=== PATIENT | female | born 1985 | race Hispanic/Latino ===

== ENCOUNTER 2024-06-10 10:52 | Emergency (ER) | payer SELFPAY ==
--- NOTE | ~2024-06-10 | US_ITS ---
EXAMINATION: US OB <=14 wk fetus w TV DATE: 06/10/2024 15:48 INDICATION: Vaginal bleeding. First trimester . TECHNIQUE: Real-time pelvic ultrasound utilizing both a transvaginal and transabdominal probe was pe rformed. The interpreting radiologist was not present for the study. COMPARISON: None. FINDINGS: The uterus measures 10.2 x 4.8 x 5.7 cm. There are couple small anechoic nabothian cysts at the cervi x the largest measuring 5 mm. The endometrial complex measures 2.6 cm in thickness. There is heteroge neous soft tissue density with some interspersed fluid at the fundus. There is a dumb figueroa-shaped ane choic fluid collection measuring 5.3 cm in length with 2 teardrop shaped collections measuring 2.0 x 1.1 cm at the fundus and 2.2 x 1.2 cm the lower uterine segment with the thin communicating neck of f luid at the mid uterus.There is a 4 x 2 mm echogenic soft tissue density within the fundal portion of the fluid collection potentially representing a yolk sac or pole but significantly smaller miki n would be expected given the size of the presumptive gestational sac. The right ovary measures 2.8 x 1.6 x 2.0 cm. The left ovary measures 2.2 x 1.2 x 1.9 cm. There is a 1 .3 similar anechoic cyst/follicle in the right ovary. Vascular flow identified at both ovaries on col or Doppler. There is no free fluid in the pelvis. IMPRESSION: 1. Thickened endometrial complex containing a large dumb figueroa-shaped anechoic fluid collection extend ing between the fundus and the lower uterine segment. On cine imaging there is a 4 x 2 mm echogenic s oft tissue density within the fundal portion of the collection potentially representing a yolk sac an d/or pole. The size of the potential yolk sac and pole is significantly smaller than woul d be expected for a gestational sac of this size which raises concern for failed . Recommend follow-up with serial beta-hCG levels and short interval repeat follow-up ultrasound as clinically i ndicated. Reviewed, dictated and finalized at location B. RNMENT TEACHER IMPRESSION: 1. Thickened endometrial complex containing a large dumb figueroa-shaped anechoic f luid collection extending between the fundus and the lower uterine segment. On cine imaging there is a 4 x 2 mm echogenic soft tissue density within the germaine l portion of the collection potentially representing a yolk sac and/or po le. The size of the potential yolk sac and pole is significantly smaller than would be expected for a gestational sac of this size which raises concern for failed . Recommend follow-up with serial beta-hCG levels and short interval repeat follow-up ultrasound as clinically indicated.
[2024-06-10 10:56] VITALS: BP 132/80; PULSE 91; RESP 20; TEMP 36.4; O2SAT 100
--- OUTSIDE RECORDS SUMMARY | 2024-06-10 12:07 | XMS_ITS | Patient Health Summary ---
Author Organization [facility] Address [address] [place] [address] Care Team Providers Care Printed Forms Proofreader Name Role Phone Unavailable Primary Care Provider Unavailabl e Note from [facility],non-owned Affiliates and Associated Physician Practices is amultiple site organization consisting of ambulatory clinics and hospital sitesin [place], [place], [place] and [place]. This disclosure is being madepursuant to the Care Everywhere program and may not contain all information available regarding this patient. Last updated 18.[facility] Allergies No known active allergies Medications * Be aware that medications may not be up to date on this document. Alwaysverify current medications with the patient. * Cetirizine HCl (ZYRTEC PO) * methylPREDNISolone (MEDROL DOSEPAK) 4 MG tablet(Started 11/28/2018) Take by mouth as directed * triamcinolone acetonide (KENALOG) 0.1 % cream(Started 11/28/2018) Apply to affected area 2 times daily Social History Tobacco Use Types Packs/Day Years Used Date Smoking Tobacco: Never Smokeless Tobacco: Never Sex and Gender Information Value Date Recorded Sex Assigned at Not on file Gender Identity Not on file Sexual Orientation Not on file Last Filed Vital Signs Vital Sign Reading Time Taken Comments Blood Pressure 120/70 11/28/2018 11:58 AM CDT Pulse 84 11/28/2018 11:58 AM CDT Temperature 37.6 ??C (99.7 ??F) 11/28/2018 11:58 AM C DT Respiratory Rate 18 11/28/2018 11:58 AM CDT Oxygen Saturation - - Inhaled Oxygen Concentration - - Weight 60.8 kg (134 lb) 11/28/2018 11:58 AM CDT Height 147.3 cm (4' 10 ) 11/28/2018 11:58 AM CDT Body Mass Index 28.01 11/28/2018 11:58 AM CDT
--- OUTSIDE RECORDS SUMMARY | 2024-06-10 12:07 | XMS_ITS | Continuity of Care Document ---
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 Name Role Phone Maritza Delgadillo MD Unavailable Unavailable Allergies, Adverse Reactions, Alerts Substance Reaction Status Criticality No Known Allergies Active No Inform ation Procedures Procedure Date OFFICE/OUTPATIENT VISIT, EST URINE TEST, BY VISUAL COLOR CO MPARISON METHODS Alcohol and/or drug screening OFFICE OUTPT EST 25 MIN Immun admin-adult or WO counseling-[place] [address] INFLUENZA VACCINE IIV3 ADMIN SARSCOV2 VACC 1 DOSE SARSCOV2 VAC 30MCG TRSSUC IM Urinalysis, Auto, w/o Scope HEMOGLOBIN; GLYCOSYLATED (A1C) BX/CURETT OF CERVIX W/SCOPE URINE TEST, BY VISUAL COLOR CO MPARISON METHODS PERIODIC COMPREHENSIVE PREVENTIVE MED RE E/M; ESTABLISHED PATIENT; 18-39 URINE TEST, BY VISUAL COLOR CO MPARISON METHODS INJ MEDROXYPROGESTERONE ACETATE 1 MG September INJ MEDROXYPROGESTERONE ACETATE 1 MG Feb OFFICE/OUTPATIENT VISIT, EST URINE TEST, BY VISUAL COLOR CO MPARISON METHODS CONIZATION OF CERVIX URINE TEST, BY VISUAL COLOR CO MPARISON METHODS OFFICE OUTPT EST 25 MIN BX/CURETT OF CERVIX W/SCOPE URINE TEST, BY VISUAL COLOR CO MPARISON METHODS INJ MEDROXYPROGESTERONE ACETATE 1 MG Oct PERIODIC COMPREHENSIVE PREVENTIVE MED RE E/M; ESTABLISHED PATIENT; 18-39 URINE TEST, BY VISUAL COLOR CO MPARISON METHODS Voided Encounter DETERMINATION OF REFRACTIVE STATE OPH MEDICAL XM&EVAL COMPRE NEW PT 1+ VST Immunization Admin COVID19 Pfizer Pre-Di luted Dose 1 SARS-CoV-2 (COVID19) VACCINE PFIZER PRED ILUTED OFFICE OUTPT EST 25 MIN Coronavirus AG IA (Rapid Test) URINE TEST, BY VISUAL COLOR CO MPARISON METHODS HEMOGLOBIN; GLYCOSYLATED (A1C) Voided Encounter INJ MEDROXYPROGESTERONE ACETATE 1 MG Jun OFFICE/OUTPATIENT VISIT, EST URINE TEST, BY VISUAL COLOR CO MPARISON METHODS INJ MEDROXYPROGESTERONE ACETATE 1 MG Mar OFFICE/OUTPATIENT VISIT, EST URINE TEST, BY VISUAL COLOR CO MPARISON METHODS INJ MEDROXYPROGESTERONE ACETATE 1 MG Dec OFFICE/OUTPATIENT VISIT, EST Alcohol and/or drug screening URINE TEST, BY VISUAL COLOR CO MPARISON METHODS OFFICE/OUTPATIENT VISIT, EST INJ MEDROXYPROGESTERONE ACETATE 1 MG Aug URINE TEST, BY VISUAL COLOR CO MPARISON METHODS OFFICE/OUTPATIENT VISIT, EST INJ MEDROXYPROGESTERONE ACETATE 1 MG May URINE TEST, BY VISUAL COLOR CO MPARISON METHODS OFFICE/OUTPATIENT VISIT, EST INJ MEDROXYPROGESTERONE ACETATE 1 MG Feb URINE TEST, BY VISUAL COLOR CO MPARISON METHODS INJ MEDROXYPROGESTERONE ACETATE 1 MG Nov OFFICE/OUTPATIENT VISIT, EST URINE TEST, BY VISUAL COLOR CO MPARISON METHODS OFFICE/OUTPATIENT VISIT, EST INJ MEDROXYPROGESTERONE ACETATE 1 MG September URINE TEST, BY VISUAL COLOR CO MPARISON METHODS INJ MEDROXYPROGESTERONE ACETATE 1 MG Jun OFFICE/OUTPATIENT VISIT, EST OFFICE/OUTPATIENT VISIT, NEW URINE TEST, BY VISUAL COLOR CO MPARISON METHODS HEPATITIS A VACCINE, ADULT DOSAGE, FOR I NTRAMUSCULAR USE OFFICE/OUTPATIENT VISIT, NEW Alcohol and/or drug screening 8 Urinalysis, Auto, w/o Scope URINE TEST, BY VISUAL COLOR CO MPARISON METHODS Advance Directives Directive Yes / No Effective Date File Name No Information Encounters Encounter Description Practice Location Reason(s) For Visit Diagnoses Date Provider Providers Copied on Encounter [facility], [address], [place], [place], [address] , tel: [phone] [facility] No Information 5 Elie Salas. [address], [place], [place], [address], . tel:[phone] [facility], [address], [place], [place], [address] , [place] tel:[phone] [facility] No Information 5 Elie Salas. [address], [place], [place], [address], . tel:[phone] OFFICE/OUTPATI ENT VISIT, EST [facility], [address], [place], [place], [address] , tel: [phone] [facility] check up (chief complaint) Body mass index (BMI) 27.0-27.9, adultEncounter for test, result positiveOverwe ightEncounter for test, result unknown 5 Elie Salas. [address], [place], [place], [address], . tel:[phone] OFFICE OUTPT EST 25 MIN [facility], [address], [place], [place], [address] , [place] tel:[phone] [facility] wellness check (chief complaint) Body mass index (BMI) 27.0-27.9, adultEncounter for adult health check-upCervic al high risk HPV DNA test positiveEncoun ter for screening for Ca of cervixEncounte r for immunizationEn counter for oth screening for malignant neoplasm of breastEncntr for plastic panel installer exam (general) (routine) w abnormal findings 4 Gerber Kwong. [address], [place], [place], [address], [place]. tel:[phone] [facility], [address], [place], [place], [address] , [place] tel:[phone] [facility] Colposcopy (chief complaint) Body mass index (BMI) 27.0-27.9, adultCarcinoma in situ of endocervixOver weightModerate cervical dysplasia 4 Elei Salas. [address], [place], [place], [address], [place]. tel:[phone] PERIODIC COMPREHENSIVE PREVENTIVE MED REE/M; ESTABLISHED PATIENT; 18-39 [facility], [address], [place], [place], [address] , [place] tel: [phone] [facility] Pap (chief complaint) Body mass index (BMI) 27.0-27.9, adultCarcinoma in situ of endocervixCerv ical high risk HPV DNA test positiveOverwe ightEncounter for screening for Ca of cervixEncounte r for surveillance of injectable contraceptiveW ell woman exam with abnormal findingEncount er for test, result unknown 4 DePass Lianne. [address], [place], [place], [address], [place]. tel:[phone] OFFICE/OUTPATI ENT VISIT, EST [facility], [address], [place], [place], [address] , [place] tel: [phone] [facility] Leep f/u (chief complaint) Body mass index (BMI) 26.0-26.9, adultEncounter for surveillance of injectable contraceptiveO verweightCarci noma in situ of endocervixEnco unter for test, result unknown 3 [facility]. [address], [place], [place], [address], [place]. tel:[phone] [facility], [address], [place], [place], [address] , [place] tel: [phone] [facility] Leep (chief complaint) CICI 2OverweightBod y mass index (BMI) 26.0-26.9, adultEncounter for test, result unknown 3 [facility]. [address], [place], [place], [address], [place]. tel:[phone] OFFICE OUTPT EST 25 MIN [facility], [address], [place], [place], [address] , [place] tel: [phone] [facility] LEEP consult (chief complaint) CICI 2 3 [facility]. [address], [place], [place], [address], [place]. tel:[phone] [facility], [address], [place], [place], [address] , [place] tel: [phone] [facility] colpo (chief complaint) Cervical high risk HPV DNA test positiveBody mass index (BMI) 25.0-25.9, adultEncounter for test, result unknown 3 [facility]. [address], [place], [place], [address], [place]. tel:[phone] PERIODIC COMPREHENSIVE PREVENTIVE MED REE/M; ESTABLISHED PATIENT; 18-39 [facility], [address], [place], [place], [address] , tel: [phone] [facility] Pap (chief complaint)d epo (chief complaint)b manohar button concerns (chief complaint) Body mass index (BMI) 25.0-25.9, adultEncounter for gynecological examination (general) (routine) without abnormal findingsEncoun ter for surveillance of injectable contraceptiveE ncounter for screening for Ca of cervixDisorder of the skin and subcutaneous tissue, unspecifiedEnc ounter for test, result unknown 3 Camila Abdalla. [address], [place], [place], [address], . tel:[phone] [facility], [address], [place], [place], [address] , tel: [phone] [facility] Depo Injection (chief complaint) No Information Jan-0 2 Nurse Registered. [address], [place], [place], [address], . tel:[phone] [facility], [address], [place], [place], [address] , tel: [phone] [facility] Eyelid twitching (chief complaint)E yelid twitching (chief complaint) Myopia, bilateralRegul ar astigmatism, bilateralOther vitreous opacities, bilateralFacia l myokymia Jan-0 2 No Information OFFICE OUTPT EST 25 MIN [facility], [address], [place], [place], [address] , tel: [phone] [facility] Medical exam (chief complaint)P t have headache, Pt left eye hurt and feel hot. (chief complaint)P t be feeling like that since a 1 week. (chief complaint) Body mass index (BMI) 25.0-25.9, adultNauseaEnc ounter for immunizationEn counter for adult health check-upUnspec ified disorder of eye and adnexaEncounte r for surveillance of injectable contraceptiveH eadache, unspecifiedEnc ounter for test, result unknown 0 2 Gerber Kwong. [address], [place], [place], [address], [place]. tel:[phone] [facility], [address], [place], [place], [address] , [place] tel: [phone] [facility] No Information 2 [facility]. [address], [place], [place], [address], [place]. tel:[phone] OFFICE/OUTPATI ENT VISIT, EST [facility], [address], [place], [place], [address] , [place] tel: [phone] [facility] depo (chief complaint) Body mass index (BMI) 27.0-27.9, adultEncounter for screening for malignant neoplasm of cervixEncounte r for surveillance of injectable contraceptiveO verweightEncou nter for test, result unknown 2 [facility]. [address], [place], [address], [place]. tel:[phone] OFFICE/OUTPATI ENT VISIT, EST [facility], [address], [place], [place], [address] , [place] tel: [phone] [facility] depo (chief complaint) Encounter for surveillance of injectable contraceptiveE ncounter for test, result unknown [facility]. [address], [place], [place], [address], [place]. tel:[phone] OFFICE/OUTPATI ENT VISIT, EST [facility], [address], [place], [place], [address] , [place] tel: [phone] [facility] depo (chief complaint) Body mass index (BMI) 26.0-26.9, adultEncounter for surveillance of injectable contraceptiveE ncounter for screening for other disorderEncoun ter for test, result unknown [facility]. [address], [place], [place], [address], . tel:[phone] OFFICE/OUTPATI ENT VISIT, EST [facility], [address], [place], [place], [address] , [place] tel:[phone] [facility] depo (chief complaint) Body mass index (BMI) 26.0-26.9, adultEncounter for surveillance of injectable contraceptiveO verweightEncou nter for test, result unknown 1 Elie Salas. [address], [place], [address], [place]. tel:[phone] OFFICE/OUTPATI ENT VISIT, EST [facility], [address], [place], [place], [address] , [place] tel: [phone] [facility] DEPO (chief complaint) Body mass index (BMI) 25.0-25.9, adultEncounter for surveillance of injectable contraceptiveO verweightEncou nter for test, result unknown 1 Elie Salas. [address], [place], [place], [address], [place]. tel:[phone] OFFICE/OUTPATI ENT VISIT, EST [facility], [address], [place], [place], [address] , [place] tel:[phone] [facility] depo (chief complaint) Body mass index (BMI) 25.0-25.9, adultEncounter for surveillance of injectable contraceptiveO verweightEncou nter for test, result unknown 0 Elie Salas. [address], [place], [place], [address], [place]. tel:[phone] Referring Provider: Maritza Delgadillo, [address], [place], [address] . tel:[phone] OFFICE/OUTPATI ENT VISIT, EST [facility], [address], [place], [place], [address] , [place] tel:[phone] [facility] depo (chief complaint) Body mass index (BMI) 25.0-25.9, adultEncounter for surveillance of injectable contraceptiveE ncounter for initial prescription of injectable contracep 0 Camila Abdalla. [address], [place], [place], [address], [place]. tel:[phone] OFFICE/OUTPATI ENT VISIT, EST [facility], [address], [place], [place], [address] , [place] tel:[phone] [facility] DEPO (chief complaint) Body mass index (BMI) 25.0-25.9, adultEncounter for initial prescription of injectable contracep 0 Gerber Kwong. [address], [place], [place], [address], . tel:[phone] Referring Provider: Elenita murguia, [address], [place], [address] . tel:[phone] OFFICE/OUTPATI ENT VISIT, EST [facility], [address], [place], [place], [address] , [place] tel:[phone] [facility] depo (chief complaint) Body mass index (BMI) 26.0-26.9, adultEncounter for initial prescription of injectable contracepOverw eightEncounter for screening for malignant neoplasm of cervix 0 Elie Maritza. [address], [place], [place], [address], . tel:[phone] OFFICE/OUTPATI ENT VISIT, NEW [facility], [address], [place], [place], [address] , [place] tel:[phone] [facility] pap (chief complaint) Encounter for surveillance of other contraceptives Encounter for screening for malignant neoplasm of cervixEncounte r for gynecological examination (general) (routine) without abnormal findingsCandid iasis, unspecifiedRas h and other nonspecific skin eruptionEncoun ter for screening, unspecified Mar-2 3-201 8 Gerber Kwong. [address], [place], [place], [address], [place]. tel:[phone] OFFICE/OUTPATI ENT VISIT, NEW [facility], [address], [place], [place], [address] , [phone] Urgent Care Immunizatio n/Hep A (chief complaint) Encounter for immunizationEn counter for screening for other disorderEncoun ter for screening, unspecified 8 Cricket Lundberg. [address], [place], [place], [address], [place]. tel:[phone] Referring Provider: Toño Harley, [address], [place], [address] . tel:[phone] Family History Family Member Type Diagnosis Age At Onset No Information Immunizations Vaccine Date Status Comments FLULAVAL(VFC)/Fluzone(Privat e)/FLUARIX(317) administered Note: Pt tolerated i njection well ; Source: New Immunization Record 12+ Pfizer administered Note: Pt tolera yara injection well ; Source: New Immunization Record COVID-19 Pfizer 12+ Johnson Cap administered Note: Pt tolerate injection well, Pt in lobby for 15mn. ; Source: New Immunization Record Vaqta/Havrix (HepA adult) administered So urce: New Immunization Record Payers Payer name Insurance type Covered republican ID Authoriza tion(s) No Information Social History Type Description Quantity Date Captured Comments Alcohol Use Details Unknown Caffeine Use Details Unknown Tobacco Use Status No Information Smoking Status No Information Sex Female Sexual Orientation Straight or heterosexual May Gender Identity Female Chief Complaint And Reason For Visit No Information Reason For Referral Reason For Referral No Information Plan Of Treatment Date Type Action Status Referral Ordered: [facility] -Mammography Screening and Diagnostic (related to Encounter for ot screening for malignant neoplasm of breast) ordered Referral Referred To: [facility] [facility] [address], [place], [phone] Ordered: Referrals: Mammography Screening and Diagnostic. [facility] ordered Referral Ordered: Pathology (tissue specimen) ordered Future Order: Lab Order hCG, Tot al, Quantitative - Serum ([id number]), Scheduled for: Ordered Future Order: Radiology Order OB US < 14 Weeks, Single Fetus ([id number]), Ordered on: Ordered Nutrition Recommendation Nutrition therap y completed Nutrition Recommendation Nutrition therap y completed Nutrition Recommendation Nutrition therap y completed Nutrition Recommendation Nutrition therap y completed Nutrition Recommendation Nutrition therap y completed Nutrition Recommendation Nutrition therap y completed Nutrition Recommendation Nutrition therap y completed Nutrition Recommendation Nutrition therap y completed Nutrition Recommendation Nutrition therap y completed Nutrition Recommendation Nutrition therap y completed Nutrition Recommendation Nutrition therap y completed Nutrition Recommendation Nutrition therap y completed Nutrition Recommendation Nutrition therap y completed Nutrition Recommendation Nutrition therap y completed Nutrition Recommendation Nutrition therap y completed Nutrition Recommendation Nutrition therap y completed History Of Present Illness Encounter Date Complaint History Of Prese nt Illness check up 38yo for urgent appt Depo mid 2023No MOC sinceLMP 03/27PT at home positive -- seen in clinic in [facility] obtained which did not show IUP or ectopic, 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 Had bleeding at home, not heavy, but with small clots, mild cramping UPT positive in clinic todayPap 11/02/22- [facility] HR HPV positive Colpo w/ CICI 2 on ECC, no CICI at ectocervical bxLEEP 02/04 w/ CICI 3, negative margins 6 month Pap 09/30/23 - AGC/ HR HPV positivePap 04/06/2024 - NIL/ HR HPV neg wellness check 38 year old here for routine checkno medicationsno chronic health issuesmood is goodhere with Mom todaynow 38, due for mx, OK with referralpap history---Pap 11/02/22- [facility] HR HPV positive Colpo w/ CICI 2 on ECC, no CICI at ectocervical bxLEEP 02/04 w/ CICI 3, negative margins 6 month Pap 09/30/23 - AGC/ HR HPV positive repeat due [id number] 03/27/24OK for flu and COVID vax Colposcopy 37yo for colpo P ap 6/23/23- [facility] HR HPV positive Colpo w/ CICI 2 on ECC, no CICI at ectocervical bxLEEP 02/04 w/ CICI 3, negative margins 6 month Pap 09/30/23 - AGC/ HR HPV positive DMPA 09/29 Has completed childbearing Pap here for pap and depoPT negative todayUsually amenorrheic when on depo but no depo since 02/25/23SA w/ one male partner, 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 Declines STD screeningLMP 08/15, prior menses to that in bPa2017/NIL/HR HPV negPap 11/02/22- [facility] HR HPV positive Colpo w/ CICI 2 on ECC, no CICI at ectocervical bxLEEP 02/04 w/ CICI 3, negative margins Has completed childbearing Leep f/u 37yo for LEEP f/ u Pap 11/02/22- [facility] HR HPV positive Colpo w/ CICI 2 on ECC, no CICI at ectocervical bxLEEP 02/04 w/ CICI 3, negative margins No pain, fever, bleeding or foul smelling discharge; notes some darkish brown secretions DMPA 11/02 - would like another shot today ; PT negative Has completed childbearing Leep 37yo with abnorm al Pap Pap 11/02/- [facility] HPV positive Colpo w/ CICI 2 on ECC, no CICI at ectocervical bxHas completed childbearing LEEP consult 37yo with abnorm al Pap Pap //- [facility] HPV positive Colpo w/ CICI 2 on ECC, no CICI at ectocervical bxHas completed childbearing colpo 37yo here for co lpo Pap // - [facility] HR HPV positive belly button concerns Pt reports of having some concerns with her belly button. She noticed some fluid coming out her belly button, which has smell to it. She noticed liquid and smell from her belly button this week also. Pt tried to clean the area with Q-tip. Pap 37 yo her e for WWE and depoLast depo summer 2022LMP- 1 week agoPT negative todayUsually amenorrheic when on depoSA w/ one male partner Pap 2017/NIL/HR HPV neg, due depo Depo Injection Administered to pt in her left deltoid. Pt tolerated injection well, no reactions noted at time of injection. RN reminded pt to come in for her next injection at 04/05-04/19. Pt given a copy of the Depo Calender with return information highlighted. Pt v/u. Eyelid twitching The 36 Year old female presents for evaluation of Eyelid twitching in the left eye. It started about 2 week(s) ago. The onset was sudden. Vision is not affected. The symptom is intermittent. Pt is not currently using anything to treat the issue. Pt notes increased stress levels the past couple of months Pt have headache, Pt left eye hurt and feel hot. Pt be feeling like t hat since a 1 week. Medical exam 3 week history o f nauseasmell of meat makes pt feel nauseatedotherwise no nauseapt has felt the same with in pasthome PT negative this AMno vomitingformerly on Depo, last Depo was 8 months agohaving regular menses, LMP 12/18/21wants to continue with Depopap pt also has one week of pain in left eyeno drainage, no vision changeslast optometry exam one year ago, no change in rx for lensesfeels like eyeball is bigger than normal/ this sensation is intermittentno current medsmood is gooddue for COVID booster depo 35 yo her e for depoLast depo 03/23LateHad menses last monthPT negative todayUsually amenorrheic SA w/ one male partner Pap 2017/NIL/HR HPV neg depo depo 35 yo 3 here for Depolast depo: 12/15period since last depo: amenorrheicsexual activity: +SA male partnerpap: neg/neg 2018declines STD testing today depo 35 yo her e for Depolast depo: 09/08period since last depo: amenorrheicsexual activity: +SA male partnerpap: neg/neg 2018declines STD testing today depo 34[address] depo [address] depo 06/06AmenorrheaBreast tenderness 3 weeks ago +SA w/ one male partner, feels safePap: 2018 - NIL/HPV negative DEPO 34yo for depo [address] depo 03/11Amenorrhea+SA w/ one male partner, feels safePap: 2018 - NIL/HPV negative depo 34[address] for depo [address] depo 12/08Amenorrhea+SA w/ one male partner, feels safeDeclines flu vaccinePap: 2018 - NIL/HPV negative depo Here for Depoon timesome intermittent spotting past 2 weeksdenies HAdenies abdominal painwants to continue methodpap UTD--neg/neg 2017no other concerns DEPO Here for Depoon timesome intermittent spotting past 2 weeksdenies HAdenies abdominal painwants to continue methodpap UTD--neg/neg 2017no other concerns depo 33yo for contraceptionDesires controlShe and considering BTL and vasectomy Interested in DMPAUsed implant prior to of last child ~8 years ago, nothing since LMP 2 weeks agoPap 07/2017 - NIL/neg pap new pthere for p apLMP- 07/25/[id number], all vaginal birthsFP - nothing since of last child 7 years ago, does not want controlno hx of abnormal papsalso worried about some skin issuesgets hives off and on regularlynot related to any particular foods or contacts that she has been able to determinehas had issue for yearscurrently red skin on throatsomewhat itchyno feversalso has skin changes under breasts and in left leg foldhas never tried anything on itwas told it was dry skin, but getting worseno medsno surgical hx Immunization/Hep A 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 Doing well, no complaints. Functional Status Date Functional Assessmen t No Information Instructions Date Instruction Additional Infor alhaji Prescribed activity/ exercise education Related to Body mass index [BMI] 27.0-27.9, adult Prescribed activity/ exercise education Related to Body mass index [BMI] 27.0-27.9, adult Prescribed activity/ exercise education Related to Body mass index [BMI] 27.0-27.9, adult Prescribed activity/ exercise education Related to Body mass index [BMI] 27.0-27.9, adult Prescribed activity/ exercise education Related to Body mass index [BMI] 26.0-26.9, adult Prescribed activity/ exercise education Related to Body mass index [BMI] 25.0-25.9, adult Prescribed activity/ exercise education Related to Body mass index [BMI] 25.0-25.9, adult Impression/Plan Related to Other vitreous opacities, bilateral Impression/Plan Related to Myopi a, bilateral Impression/Plan Related to Regul ar astigmatism, bilateral Impression/Plan Related to Facia l myokymia Prescribed activity/ exercise education Related to Body mass index [BMI] 25.0-25.9, adult Prescribed activity/ exercise education Related to Body mass index [BMI] 27.0-27.9, adult Prescribed activity/ exercise education Related to Body mass index [BMI] 26.0-26.9, adult Prescribed activity/ exercise education Related to Body mass index [BMI] 26.0-26.9, adult Prescribed activity/ exercise education Related to Body mass index [BMI] 25.0-25.9, adult Prescribed activity/ exercise education Related to Body mass index [BMI] 25.0-25.9, adult Weight monitoring Related to Bod y mass index (BMI) 25.0-25.9, adult Prescribed activity/ exercise education Related to Body mass index (BMI) 25.0-25.9, adult Prescribed activity/ exercise education Related to Body mass index (BMI) 26.0-26.9, adult Assessments Type Assessment Date No Information Patient Care Teams Name Effective Dates (start - stop) Status Members No Information
--- OUTSIDE RECORDS SUMMARY | 2024-06-10 12:07 | XMS_ITS | Clinical Summary ---
Author Organization [facility] [employer] Address [address] [place] [address] Care Team Providers Care Lamp Tester And Inspector Name Role Phone Unavailable Primary Care Provider Unavailabl e Source Comments [facility],non-owned Affiliates and Associated Physician Practices is amultiple site organization consisting of ambulatory clinics and hospital sitesin [place], [place], [place] and [place]. This disclosure is being madepursuant to the Care Everywhere program and may not contain all information available regarding this patient. Last updated 18.[facility] [employer] Allergies No known active allergies Medications * Be aware that medications may not be up to date on this document. Alwaysverify current medications with the patient. Medication Sig Dispensed Refills Start Date End Date Status Cetirizine HCl (ZYRTEC PO) Active methylPREDNISolone (MEDROL DOSEPAK) 4 MG tablet Take by mouth as directed 1 Each 11/28/2018 Active triamcinolone acetonide (KENALOG) 0.1 % cream Apply to affected area 2 times daily 80 g 11/28/2018 Active Social History Tobacco Use Types Packs/Day Years [...] Mass Index 28.01 11/28/2018 11:58 AM CDT Plan of Treatment Health Maintenance Due Date Last Done Comments LIPID TESTING 1983 MAMMOGRAM 1983 PAP SMEAR 1983 HIV SCREENING 10/28/1998 HEPATITIS C SCREENING 10/24/2001 DTAP/TDAP/TD VACCINES (1 - Tdap) 10/28/2002 HEPATITIS B VACCINE (1 of 3 - 19+ 3-dose series) 10/28/2002 COVID-19 VACCINE ( - 2023-2 5 season) 2024 INFLUENZA VACCINE (#1) 2024 DEPRESSION SCREENING 05/13/2024 ZOSTER VACCINE (1 of 2) 10/28/2033 HIB VACCINE Aged Out No longer eligi ble based on patient's age to complete this topic HPV VACCINE Aged Out No longer eligi ble based on patient's age to complete this topic MENINGOCOCCAL (Group B) VACCINE Aged Out No longer eligible based on patient's age to complete this topic MENINGOCOCCAL VACCINE Aged Out No basia harpreet eligible based on patient's age to complete this topic PNEUMOCOCCAL VACCINE Aged Out No long er eligible based on patient's age to complete this topic
--- OUTSIDE RECORDS SUMMARY | 2024-06-10 12:07 | XMS_ITS | Referral Summary ---
Author Organization [facility] [employer] Address [address] [place] [address] Care Team Providers Care Web Offset Press Feeder Name Role Phone Unavailable Primary Care Provider Unavailabl e Source Comments [facility],non-owned Affiliates and Associated Physician Practices is amultiple site organization consisting of ambulatory clinics and hospital sitesin [place] and [place]. This disclosure is being madepursuant to the Care Everywhere program and may not contain all information available regarding this patient. Last updated 18.[facility] [employer] Allergies No known active allergies Medications * [...] 11/28/2018 11:58 AM CDT Plan of Treatment Not on file
--- NOTE | 2024-06-10 13:28 | ED.FEMALEGU ---
HPI - Female Genitourinary General Chief complaint: Vaginal Bleeding <Destiny Hernández PA-C - Last Filed: 06/10/24 13:36> Stated complaint: miscarriage <Destiny Hernández PA-C - Last Filed: 06/10/24 13:36> Time Seen by Provider: 06/10/24 14:53 <Destiny Hernández PA-C - Last Filed: 06/10/24 13:36> Focused HPI: 38 y/o F presents to the ED for vaginal bleeding in . LMP mid March. She believes she is 6-8 weeks . Patient had a positive test on May 23, 2024. She had an ultrasound performed last week which showed no activity. She had her beta hcg drawn Saturday which was reportedly 1500. States last night the patient began having vaginal bleeding and passing clots. She has been changing a pad every 30 minutes since. States she went to [place] emergency department last night but left after waiting to be seen for 3 hours. She is reporting lower abdominal cramping. Her OBGYN is Dr. Maritza Delgadillo with [facility] in [place]. GENERAL: Well-appearing, well-nourished, and in no acute distress. HEAD: Normocephalic, atraumatic. CHEST: Clear to auscultation. ?No respiratory distress. HEART: Regular rate and rhythm.? NEURO: ?Alert and oriented x3. Patient screened in triage and initial orders placed.? ?Additional care and disposition to be based upon?diagnostic testing and treatment. <Destiny Hernández PA-C - Last Filed: 06/10/24 13:36> History of Present Illness HPI Narrative: I agree with the above HPI <Austin Glass MD - Last Filed: 06/10/24 19:26> Related Data Allergies/Adverse reactions: Allergies Allergy/AdvReac Type Severity Reaction Status Date / Time No Known Allergies Allergy Verified 06/10/24 11:00 <Destiny Hernández PA-C - Last Filed: 06/10/24 13:36> Review of Systems Review of Systems: All systems reviewed & are unremarkable except as noted in HPI and below <Austin Glass MD - Last Filed: 06/10/24 19:26> Exam Narrative: APPEARANCE: Well appearing, no pain, no distress, well-nourished. HEAD: normocephalic, atraumatic. EYES: PERRLA/EOMI, conjunctivae clear. NOSE: Normal no drainage EARS:TMS clear with good light reflex. THROAT: Pharynx clear, no exudate. NECK: Supple. No adenopathy, no masses. RESPIRATORY: Airway patent, respirations nonlabored. Clear to auscultation bilaterally, no rales, rhonchi, wheezing. CARDIOVASCULAR: Regular rate and rhythm without murmurs rubs or gallops. ABDOMINAL: Soft, nontender, nondistended, normal bowel sounds Pelvic exam: Mild bleeding from the cervix with no evidence of hemorrhage or rapid refilling of the vaginal vault MUSCULOSKELETAL: Moves all extremities. Strength/ROM intact, No edema, No calf tenderness. NEURO: Alert. Cranial nerves II through XII intact. Good gait. Good coordination SKIN: Warm, dry. Normal Color <Austin Glass MD - Last Filed: 06/10/24 19:26> Course Vital Signs Vital signs: Vital Signs Temperature 97.6 F 06/10/24 10:56 Pulse Rate 91 06/10/24 10:56 Respiratory Rate 20 06/10/24 10:56 Blood Pressure 132/80 06/10/24 10:56 Pulse Oximetry 100 06/10/24 10:56 Oxygen Delivery Room Air 06/10/24 10:56 Temperature 97.9 F 06/10/24 14:41 Pulse Rate 89 06/10/24 17:32 Respiratory Rate 18 06/10/24 17:32 Blood Pressure 109/63 06/10/24 17:32 Pulse Oximetry 100 06/10/24 17:32 Oxygen Delivery Room Air 06/10/24 14:41 <Destiny Hernández PA-C - Last Filed: 06/10/24 13:36> Vital Signs Temperature 97.6 F 06/10/24 10:56 Pulse Rate 91 06/10/24 10:56 Respiratory Rate 20 06/10/24 10:56 Blood Pressure 132/80 06/10/24 10:56 Pulse Oximetry 100 06/10/24 10:56 Oxygen Delivery Room Air 06/10/24 10:56 Temperature 97.9 F 06/10/24 14:41 Pulse Rate 89 06/10/24 17:32 Respiratory Rate 18 06/10/24 17:32 Blood Pressure 109/63 06/10/24 17:32 Pulse Oximetry 100 06/10/24 17:32 Oxygen Delivery Room Air 06/10/24 14:41 <Austin Glass MD - Last Filed: 06/10/24 19:26> MDM - Female Genitourinary MDM Narrative Medical decision making narrative: 38-year-old female present to the emergency department for evaluation for vaginal bleeding. Patient is afebrile with no leukocytosis stable hemoglobin 11.2. Patient's blood type is O positive. No acute abnormalities on the patient's CMP. Patient's beta hCG was 549.14. On pelvic exam patient did have vaginal bleeding but no evidence of hemorrhage. Bleeding was coming from the cervix which was nonfriable. Ultrasound showed thickened endometrial complex containing a large dumb figueroa-shaped anechoic fluid collection extending between the fundus and the lower uterine segment. On cine imaging there is a 4 x 2 mm echogenic soft tissue density within the fundal portion of the collection potentially representing a yolk sac and/or pole. The size of the potential yolk sac and pole is significantly smaller than would be expected for a gestational sac of this size which raises concern for failed . Recommend follow-up with serial beta-hCG levels and short interval repeat follow-up ultrasound as clinically indicated. <Austin Glass MD - Last Filed: 06/10/24 19:26> Differential Diagnosis Differential diagnosis: Likely urinary tract infection, bacterial vaginosis, ovarian cyst and ruptured ovarian cyst <Austin Glass MD - Last Filed: 06/10/24 19:26> Lab Data Attestation: I reviewed the patient's lab results. <Austin Glass MD - Last Filed: 06/10/24 19:26> Result diagrams: 06/10/24 13:36 06/10/24 13:36 <Destiny Hernández PA-C - Last Filed: 06/10/24 13:36> Labs: Lab Results 06/10/24 06/10/24 06/10/24 Range/Units 13:36 13:37 15:59 WBC 9.3 (4.5-10.0) K/mm3 RBC 4.17 L (4.2-5.4) M/mm3 Hgb 11.2 L (12.0-15.0) g/dL Hct 35.5 L (37.0-47.0) % MCV 85.1 (80-100) fl MCH 26.9 (26-34) pg MCHC 31.5 L (32-36) g/dl RDW 13.7 (11.5-14.5) % Plt Count 301 (150-375) k/mm3 MPV 9.2 (7.4-10.4) fl Immature Gran % (Auto) 0.2 (0-0.5) % Neut % (Auto) 55.4 (45.5-73.1) % Lymph % (Auto) 34.8 (18.3-44.2) % Sherman % (Auto) 7.3 (2.6-8.5) % Eos % (Auto) 1.8 (0-4.4) % Baso % (Auto) 0.5 (0.2-1.2) % Lymph # (Auto) 3.25 H (0.9-3.2) K/mm3 Sherman # (Auto) 0.7 H (0.1-0.6) K/mm3 Eos # (Auto) 0.2 (0-0.3) K/mm3 Baso # (Auto) 0.1 (0.0-0.1) K/mm3 Abs Immat Gran (auto) 0.02 (0.00-0.031) K/mm3 Absolute Neuts (auto) 5.2 (1.3-6.7) K/mm3 Absolute Nucleated RBC 0.000 (0.0-0.012) K/mm3 Nucleated RBC % 0.0 (0.0-0.2) % PT 13.2 (11.1-14.7) Seconds INR 1.0 APTT 29.1 (22.3-36.8) Seconds Sodium 138 (137-145) mmol/L Potassium 3.9 (3.4-5.0) mmol/L Chloride 104 (98-107) mmol/L Carbon Dioxide 24 (22-30) mmol/L Anion Gap 10 (4-12) mmol/L BUN 6 L (7-17) mg/dL Creatinine 0.48 L (0.7-1.0) mg/dL Estim Creat Clear Calc Not Reportable Estimated GFR > 60 (59 - ) Glucose 98 (65-110) mg/dL Calcium 8.7 (8.4-10.2) mg/dL Total Bilirubin 0.4 (0.2-1.3) mg/dL AST 23 (14-36) U/L ALT 30 (6-35) U/L Alkaline Phosphatase 73 (38-126) U/L Total Protein 7.0 (6.3-8.2) g/dL Albumin 4.0 (3.5-5.1) g/dL Beta HCG, Quant 549.14 mIU/ML Urine Color Yellow (Yellow) Urine Appearance Clear (Clear) Urine pH 5.5 (5.0-9.0) Ur Specific [place] 1.006 (1.001-1.035) Urine Protein Negative (Negative) mg/dL Urine Glucose (UA) Negative (Negative) mg/dL Urine Ketones Negative (Negative) mg/dL Ur Blood (Man) 3+ H (Negative) Urine Nitrate Negative (Negative) Urine Bilirubin Negative (Negative) Urine Urobilinogen 0.2 (<2.0) mg/dL Add Ur Microanalysis Reviewed Leukocyte Esterase Rfl Negative (Negative) AGUSTÍN/UL Urine RBC 6-10 H (0-2) /hpf Urine WBC 0-5 (0-3) /hpf Ur Squamous Epith Cells Occasional (Few) /hpf Urine Bacteria None seen /hpf Urine Casts 0-2 Blood Type O Positive Antibody Screen Negative Doses of RhIg Required 0 <Destiny Hernández PA-C - Last Filed: 06/10/24 13:36> Lab Results 06/10/24 06/10/24 06/10/24 Range/Units 13:36 13:37 15:59 WBC 9.3 (4.5-10.0) K/mm3 RBC 4.17 L (4.2-5.4) M/mm3 Hgb 11.2 L (12.0-15.0) g/dL Hct 35.5 L (37.0-47.0) % MCV 85.1 (80-100) fl MCH 26.9 (26-34) pg MCHC 31.5 L (32-36) g/dl RDW 13.7 (11.5-14.5) % Plt Count 301 (150-375) k/mm3 MPV 9.2 (7.4-10.4) fl Immature Gran % (Auto) 0.2 (0-0.5) % Neut % (Auto) 55.4 (45.5-73.1) % Lymph % (Auto) 34.8 (18.3-44.2) % Sherman % (Auto) 7.3 (2.6-8.5) % Eos % (Auto) 1.8 (0-4.4) % Baso % (Auto) 0.5 (0.2-1.2) % Lymph # (Auto) 3.25 H (0.9-3.2) K/mm3 Sherman # (Auto) 0.7 H (0.1-0.6) K/mm3 Eos # (Auto) 0.2 (0-0.3) K/mm3 Baso # (Auto) 0.1 (0.0-0.1) K/mm3 Abs Immat Gran (auto) 0.02 (0.00-0.031) K/mm3 Absolute Neuts (auto) 5.2 (1.3-6.7) K/mm3 Absolute Nucleated RBC 0.000 (0.0-0.012) K/mm3 Nucleated RBC % 0.0 (0.0-0.2) % PT 13.2 (11.1-14.7) Seconds INR 1.0 APTT 29.1 (22.3-36.8) Seconds Sodium 138 (137-145) mmol/L Potassium 3.9 (3.4-5.0) mmol/L Chloride 104 (98-107) mmol/L Carbon Dioxide 24 (22-30) mmol/L Anion Gap 10 (4-12) mmol/L BUN 6 L (7-17) mg/dL Creatinine 0.48 L (0.7-1.0) mg/dL Estim Creat Clear Calc Not Reportable Estimated GFR > 60 (59 - ) Glucose 98 (65-110) mg/dL Calcium 8.7 (8.4-10.2) mg/dL Total Bilirubin 0.4 (0.2-1.3) mg/dL AST 23 (14-36) U/L ALT 30 (6-35) U/L Alkaline Phosphatase 73 (38-126) U/L Total Protein 7.0 (6.3-8.2) g/dL Albumin 4.0 (3.5-5.1) g/dL Beta HCG, Quant 549.14 mIU/ML Urine Color Yellow (Yellow) Urine Appearance Clear (Clear) Urine pH 5.5 (5.0-9.0) Ur Specific [place] 1.006 (1.001-1.035) Urine Protein Negative (Negative) mg/dL Urine Glucose (UA) Negative (Negative) mg/dL Urine Ketones Negative (Negative) mg/dL Ur Blood (Man) 3+ H (Negative) Urine Nitrate Negative (Negative) Urine Bilirubin Negative (Negative) Urine Urobilinogen 0.2 (<2.0) mg/dL Add Ur Microanalysis Reviewed Leukocyte Esterase Rfl Negative (Negative) AGUSTÍN/UL Urine RBC 6-10 H (0-2) /hpf Urine WBC 0-5 (0-3) /hpf Ur Squamous Epith Cells Occasional (Few) /hpf Urine Bacteria None seen /hpf Urine Casts 0-2 Blood Type O Positive Antibody Screen Negative Doses of RhIg Required 0 <Austin Glass MD - Last Filed: 06/10/24 19:26> Imaging Data Radiologist's impression: Impressions Obstetrics Ultrasound 06/10/24 15:49 IMPRESSION: 1. Thickened endometrial complex containing a large dumb figueroa-shaped anechoic fluid collection extending between the fundus and the lower uterine segment. On cine imaging there is a 4 x 2 mm echogenic soft tissue density within the fundal portion of the collection potentially representing a yolk sac and/or pole. The size of the potential yolk sac and pole is significantly smaller than would be expected for a gestational sac of this size which raises concern for failed . Recommend follow-up with serial beta-hCG levels and short interval repeat follow-up ultrasound as clinically indicated. <Austin Glass MD - Last Filed: 06/10/24 19:26> Discharge Plan Discharge Clinical Impression: Vaginal bleeding <Destiny Hernández PA-C - Last Filed: 06/10/24 13:36> Patient Disposition: Home, Self-Care <Destiny Hernández PA-C - Last Filed: 06/10/24 13:36> Condition: Stable <Destiny Hernández PA-C - Last Filed: 06/10/24 13:36> Instructions: Antibiotic Form, Threatened Miscarriage (ED) <Destiny Hernández PA-C - Last Filed: 06/10/24 13:36> Additional Instructions: Drink plenty of fluids. Tylenol for pain control. Have close follow-up with your OB Gyne in the next 1-2 days for repeat ultrasound and repeat beta hCG. <Destiny Hernández PA-C - Last Filed: 06/10/24 13:36> Patient Language: Czech <Destiny Hernández PA-C - Last Filed: 06/10/24 13:36> Follow-up/Referrals: UNKNOWN,DOCTOR [Primary Care Provider] - <Destiny Hernández PA-C - Last Filed: 06/10/24 13:36>
[2024-06-10 13:43] LABS: Basophils Absolute Auto 0.1 K/mm3 (0.0-0.1); Basophils Percent Auto 0.5 % (0.2-1.2); Eosinophils Absolute Auto 0.2 K/mm3 (0-0.3); Eosinophils Percent Auto 1.8 % (0-4.4); Hematocrit 35.5 % (37.0-47.0); Hemoglobin 11.2 g/dL (12.0-15.0); Immature Granulocyte Absolute 0.02 K/mm3 (0.00-0.031); Immature Granulocyte Percent A 0.2 % (0-0.5); Lymphocytes Absolute Auto 3.25 K/mm3 (0.9-3.2); Lymphocytes Percent Auto 34.8 % (18.3-44.2); Mean Corpuscular HGB Conc 31.5 g/dl (32-36); Mean Corpuscular Hemoglobin 26.9 pg (26-34); Mean Corpuscular Volume 85.1 fl (80-100); Mean Platelet Volume 9.2 fl (7.4-10.4); Monocytes Absolute Auto 0.7 K/mm3 (0.1-0.6); Monocytes Percent Auto 7.3 % (2.6-8.5); Neutrophils Absolute Auto 5.2 K/mm3 (1.3-6.7); Neutrophils Percent Auto 55.4 % (45.5-73.1); Platelet Count Result 301 k/mm3 (150-375); Red Blood Count 4.17 M/mm3 (4.2-5.4); Red Cell Distribution Width 13.7 % (11.5-14.5); White Blood Count 9.3 K/mm3 (4.5-10.0)
[2024-06-10 13:53] LABS: Alanine Aminotransferase 30 U/L (6-35); Alkaline Phosphatase 73 U/L (38-126); Anion Gap 10 mmol/L (4-12); Aspartate Amino Transferase 23 U/L (14-36); Bilirubin,Total 0.4 mg/dL (0.2-1.3); Blood Urea Nitrogen 6 mg/dL (7-17); Calcium 8.7 mg/dL (8.4-10.2); Carbon Dioxide 24 mmol/L (22-30); Chloride 104 mmol/L (98-107); Estimated Glomerular Filt Rate > 60; Glucose 98 mg/dL (65-110); Potassium 3.9 mmol/L (3.4-5.0); Sodium 138 mmol/L (137-145)
[2024-06-10 13:58] LABS: Partial Thromboplastin Time 29.1 Seconds (22.3-36.8); Prothrombin Time 13.2 Seconds (11.1-14.7)
[2024-06-10 14:20] LABS: Beta HCG Quantitative 549.14 mIU/ML
[2024-06-10 14:41] VITALS: BP 112/77; PULSE 80; RESP 18; TEMP 36.6; O2SAT 100
[2024-06-10] MEDS: SODIUM CHLORIDE 0.9% IV 1,000 ML 999 ML IV CONT (16:14)
[2024-06-10 16:36] LABS: Add Urine Microscopic? YES; Appearance Urine Clear (Clear); Bacteria Urine None Seen /hpf; Bilirubin Urine Negative (Negative); Blood Urine 3+ (Negative); Color Urine Yellow (Yellow); Glucose Urine UA Negative (Negative); Ketones Urine Negative (Negative); Leukocyte Esterase Ur Negative LEU/UL (Negative); Need Manual Microscopic Reviewed; Nitrate Urine Negative (Negative); Non Pathogenic Casts 0-2; Protein Urine Negative (Negative); Specific Grav Ur 1.006 (1.001-1.035); Squamous Epithelial Cell Urine Occasional /hpf (Few); Urobilinogen Urine 0.2 mg/dL (<2.0); WBC Urine 0-5 /hpf (0-3); pH Urine 5.5 (5.0-9.0)
--- OUTSIDE RECORDS SUMMARY | 2024-06-10 16:43 | XMS_ITS | Continuity of Care Document ---
Author Organization [employer] Address [address] [place] [address] Phone Care Team Providers Care Steel Chipper Name Role Phone Maritza Delgadillo MD Unavailable Unavailable Allergies, Adverse Reactions, Alerts Substance Reaction Status Criticality No Known Allergies Active No Inform ation Procedures Procedure Date OFFICE/OUTPATIENT VISIT, EST URINE TEST, BY VISUAL COLOR CO MPARISON METHODS Alcohol and/or drug screening OFFICE OUTPT EST 25 MIN Immun admin-adult or WO counseling-each add vaccine/toxoid aft 56476 INFLUENZA VACCINE IIV3 ADMIN SARSCOV2 VACC 1 [...] Encounter [facility], [address], [place], [place], [address] , tel: [phone] [facility] No Information 5 Elie Salas. [address], [place], [place], [address], . tel:[phone] [facility], [address], [place], [place], [address] , [place] tel:[phone] [facility] No Information 5 Elie Salas. [address], [place], [place], [address], . tel:[phone] OFFICE/OUTPATI ENT VISIT, EST [facility], [address], [place], [place], [address] , tel: [phone] [facility] check up (chief complaint) Body mass index (BMI) 27.0-27.9, adultEncounter for test, result positiveOverwe ightEncounter for test, result unknown 5 Elie Salas. [address], [place], [place], [address], . tel:[phone] OFFICE OUTPT EST 25 MIN [facility], [address], [place], [place], [address] , [place] tel:[phone] [facility] wellness check (chief complaint) Body mass index (BMI) 27.0-27.9, adultEncounter for adult health check-upCervic al high risk HPV DNA test positiveEncoun ter for screening for Ca of cervixEncounte r for immunizationEn counter for oth screening for malignant neoplasm of breastEncntr for student affairs dean exam (general) (routine) w abnormal findings 4 Gerber Kwong. [address], [place], [place], [address], [place]. tel:[phone] [facility], [address], [place], [place], [address] , [place] tel:[phone] [facility] Colposcopy (chief complaint) Body mass index (BMI) 27.0-27.9, adultCarcinoma in situ of endocervixOver weightModerate cervical dysplasia 4 Elie Salas. [address], [place], [place], [address], [place]. 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 [address], [place], [place], [address], [place]. tel:[phone] OFFICE/OUTPATI ENT VISIT, EST [facility], [address], [place], [place], [address] , [place] tel: [phone] [facility] Leep f/u (chief complaint) Body mass index (BMI) 26.0-26.9, adultEncounter for surveillance of injectable contraceptiveO verweightCarci noma in situ of endocervixEnco unter for test, result unknown 3 [facility]. [address], [place], [place], [address], [place]. tel:[phone] [facility], [address], [place], [place], [address] , [place] tel: [phone] [facility] Leep (chief complaint) CICI 2OverweightBod y mass index (BMI) 26.0-26.9, adultEncounter for test, result unknown 3 [facility]. [address], [place], [place], [address], [place]. tel:[phone] OFFICE OUTPT EST 25 MIN [facility], [address], [place], [place], [address] , [place] tel: [phone] LEEP consult (chief complaint) CICI 2 3 [facility]. [address], [place], [place], [address], [place]. tel:[phone] [facility], [address], [place], [place], [address] , [place] tel: [phone] [facility] colpo (chief complaint) Cervical high risk HPV DNA test positiveBody mass index (BMI) 25.0-25.9, adultEncounter for test, result unknown 3 [facility]. [address], [place], [place], [address], [place]. 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 [address], [place], [place], [address], . tel:[phone] [facility], [address], [place], [place], [address] , tel: [phone] [facility] Depo Injection (chief complaint) No Information Jan-0 2 Nurse Registered. [address], [place], [place], [address], . tel:[phone] [facility], [address], [place], [place], [address] , tel: [phone] [facility] Eyelid twitching (chief complaint)E yelid twitching (chief complaint) Myopia, bilateralRegul ar astigmatism, bilateralOther vitreous opacities, bilateralFacia l myokymia Jan-0 2 No Information OFFICE OUTPT EST 25 MIN [facility], [address], [place], [place], [address] , tel: [phone] [facility] Medical exam (chief complaint)P t have headache, [...] 0 2 Gerber Kwong. [address], [place], [place], [address], [place]. tel:[phone] [facility], [address], [place], [place], [address] , [place] tel: [phone] [facility] No Information 2 [facility]. [address], [place], [place], [address], [place]. tel:[phone] OFFICE/OUTPATI ENT VISIT, EST [facility], [address], [place], [place], [address] , [place] tel: [phone] [facility] depo (chief complaint) Body mass index (BMI) 27.0-27.9, adultEncounter for screening for malignant neoplasm of cervixEncounte r for surveillance of injectable contraceptiveO verweightEncou nter for test, result unknown 2 [facility]. [address], [place], [place], [address], [place]. tel:[phone] OFFICE/OUTPATI ENT VISIT, EST [facility], [address], [place], [place], [address] , [place] tel: [phone] [facility] depo (chief complaint) Encounter for surveillance of injectable contraceptiveE ncounter for test, result unknown [facility]. [address], [place], [place], [address], [place]. tel:[phone] OFFICE/OUTPATI ENT VISIT, EST [facility], [address], [place], [place], [address] , [place] tel: [phone] [facility] depo (chief complaint) Body mass index (BMI) 26.0-26.9, adultEncounter for surveillance of injectable contraceptiveE ncounter for screening for other disorderEncoun ter for test, result unknown [facility]. [address], [place], [place], [address], . tel:[phone] OFFICE/OUTPATI ENT VISIT, EST [facility], [address], [place], [place], [address] , [place] tel:[phone] [facility] depo (chief complaint) Body mass index (BMI) 26.0-26.9, adultEncounter for surveillance of injectable contraceptiveO verweightEncou nter for test, result unknown 1 Elie Salas. [address], [place], [place], [address], [place]. tel:[phone] OFFICE/OUTPATI ENT VISIT, EST [facility], [address], [place], [place], [address] , [place] tel: [phone] [facility] DEPO (chief complaint) Body mass index (BMI) 25.0-25.9, adultEncounter for surveillance of injectable contraceptiveO verweightEncou nter for test, result unknown 1 Elie Salas. [address], [place], [place], [address], [place]. tel:[phone] OFFICE/OUTPATI ENT VISIT, EST [facility], [address], [place], [place], [address] , [place] tel:[phone] [facility] depo (chief complaint) Body mass index (BMI) 25.0-25.9, adultEncounter for surveillance of injectable contraceptiveO verweightEncou nter for test, result unknown 0 Elie Salas. [address], [place], [place], [address], [place]. tel:[phone] Referring Provider: Maritza Delgadillo, [address], [place], [address] . tel:[phone] OFFICE/OUTPATI ENT VISIT, EST [facility], [address], [place], [place], [address] , [place] tel:[phone] [facility] depo (chief complaint) Body mass index (BMI) 25.0-25.9, adultEncounter for surveillance of injectable contraceptiveE ncounter for initial prescription of injectable contracep 0 Camila Abdalla. [address], [place], [place], [address], [place]. tel:[phone] OFFICE/OUTPATI ENT VISIT, EST [facility], [address], [place], [place], [address] , [place] tel:[phone] [facility] DEPO (chief complaint) Body mass index (BMI) 25.0-25.9, adultEncounter for initial prescription of injectable contracep 0 Gerber Kwong. [address], [place], [place], [address], . tel:[phone] Referring Provider: Elenita murguia, [address], [place], [address] . tel:[phone] OFFICE/OUTPATI ENT VISIT, EST [facility], [address], [place], [place], [address] , [place] tel:[phone] [facility] depo (chief complaint) Body mass index (BMI) 26.0-26.9, adultEncounter for initial prescription of injectable contracepOverw eightEncounter for screening for malignant neoplasm of cervix 0 Elie Maritza. [address], [place], [place], [address], . tel:[phone] OFFICE/OUTPATI ENT VISIT, NEW [facility], [address], [place], [place], [address] , [place] tel:[phone] [facility] pap (chief complaint) Encounter for surveillance of other contraceptives Encounter for screening for malignant neoplasm of cervixEncounte r for gynecological examination (general) (routine) without abnormal findingsCandid iasis, unspecifiedRas h and other nonspecific skin eruptionEncoun ter for screening, unspecified Mar-2 3-201 8 Gerebr Kwong. [address], [place], [place], [address], [place]. tel:[phone] OFFICE/OUTPATI ENT VISIT, NEW [facility], [address], [place], [place], [address] , [phone] [facility] Immunizatio n/Hep A (chief complaint) Encounter for immunizationEn counter for screening for other disorderEncoun ter for screening, unspecified 8 Cricket Lundberg. [address], [place], [place], [address], [place]. tel:[phone] Referring Provider: Toño Harley, [address], [place], [address] . tel:[phone] Family History Family Member Type Diagnosis Age [...] Record Payers Payer name Insurance type Covered libertarian ID Authoriza tion(s) No Information Social History [...] Treatment Date Type Action Status Referral Ordered: [facility] -Mammography Screening and Diagnostic (related to Encounter for ot screening for malignant neoplasm of breast) ordered Referral Referred To: [facility] [address], [place], [id number] Ordered: Referrals: Mammography Screening and Diagnostic. [facility] ordered Referral Ordered: Pathology (tissue specimen) ordered Future Order: Lab Order hCG, Tot al, Quantitative - Serum ([id number]), Scheduled for: Ordered Future Order: Radiology Order OB US < 14 Weeks, Single Fetus ([id number]), Ordered on: Ordered Nutrition Recommendation Nutrition therap [...] home positive -- seen in clinic in [facility] obtained which did not show IUP or ectopic, told to f/u with student affairs dean Had bleeding at home, not heavy, but [...] - AGC/ HR HPV positive repeat due [id number] 03/27/24OK for flu and COVID vax Colposcopy [...] since 02/25/23SA w/ one male partner, stable emt intermediate partner. 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 Functional Status [...]
--- OUTSIDE RECORDS SUMMARY | 2024-06-10 16:43 | XMS_ITS | Patient Health Summary ---
Author Organization [facility] Address [address] [place] [address] Care Team Providers Care Sample Body Builder Name Role Phone Unavailable Primary Care Provider Unavailabl e Note from [facility],non-owned Affiliates and Associated Physician Practices is amultiple site organization consisting of ambulatory clinics and hospital sitesin [place], [place], [place] and [place]. This disclosure is being madepursuant to the Care Everywhere program and may not contain all information available regarding this patient. Last updated 18.[facility] Allergies No known active allergies Medications * [...]
--- OUTSIDE RECORDS SUMMARY | 2024-06-10 16:43 | XMS_ITS | Clinical Summary ---
Author Organization [facility] Address [address] [place] [address] Care Team Providers Care Truck Striker Name Role Phone Unavailable Primary Care Provider Unavailabl e Source Comments [facility],non-owned Affiliates and Associated Physician Practices is amultiple site organization consisting of ambulatory clinics and hospital sitesin [place], [place], [place] and [place]. This disclosure is being madepursuant to the Care Everywhere program and may not contain all information available regarding this patient. Last updated 18.[facility] Allergies No known active allergies Medications * [...]
--- OUTSIDE RECORDS SUMMARY | 2024-06-10 16:43 | XMS_ITS | Referral Summary ---
Author Organization [facility] Address [address] [place] [address] Care Team Providers Care Biochemistry Professor Name Role Phone Unavailable Primary Care Provider Unavailabl e Source Comments [facility],non-owned Affiliates and Associated Physician Practices is amultiple site organization consisting of ambulatory clinics and hospital sitesin [place], [place], [place] and [place]. This disclosure is being madepursuant to the Care Everywhere program and may not contain all information available regarding this patient. Last updated 18.[facility] Allergies No known active allergies Medications * [...]
[2024-06-10 17:32] VITALS: BP 109/63; PULSE 89; RESP 18; O2SAT 100
== END 2024-06-10 17:35 | disposition home or self-care (01) ==
PROVIDERS: Physician Assistant; Emergency Provider Emergency Medicine
DX: O20.9 Hemorrhage in early pregnancy, unspecified (principal); Z3A.01 Less than 8 weeks gestation of pregnancy
CPT/HCPCS: 36415; 76801; 76817; 80053; 81001; 84702; 85025; 85461; 85610; 85730; 86850; 86900; 86901; 96360; 99284; J7030